=== PATIENT | female | born 1995 | race African-American/Black ===

== ENCOUNTER 2019-08-11 20:20 | Emergency (ER) | payer OTHER ==
[~2019-08-11] VITALS: Ht 162.6 cm; Wt 90.7 kg
[2019-08-11] MEDS ORDERED: KEFLEX500 M1 PO (21:52)
[2019-08-11] MEDS ORDERED: SSD CREAM 1% 5050 GM TOP (21:52)
[2019-08-11] MEDS ORDERED: NORCO 5-325 TA1 EAC1 PO (21:52)
[2019-08-11 22:03] VITALS: BP 129/91
== END 2019-08-11 22:06 | disposition home or self-care (01) ==
LOC: ER 20:20
DX: T24.212A Burn of second degree of left thigh, initial encounter (principal); T24.211A Burn of second degree of right thigh, initial encounter; T25.221A Burn of second degree of right foot, initial encounter; T31.0 Burns involving less than 10% of body surface; X10.2XXA Contact with fats and cooking oils, initial encounter; Y92.009 Unspecified place in unspecified non-institutional (private) residence as the place of occurrence of the external cause; Y93.89 Activity, other specified; Y99.8 Other external cause status